=== PATIENT | female | born 1950 | race Caucasian/White ===

== ENCOUNTER 2018-01-31 19:43 | Emergency (ER) | payer MEDICARE, BC ==
[2018-01-31] MEDS ORDERED: Acetaminophen/Codeine 30-300mg Tablet ONE (20:11)
--- NOTE | 2018-01-31 20:28 | RAD ---
RIGHT KNEE FOUR VIEWS: 01/31/2018 HISTORY: Injury. COMPARISON: None. FINDINGS: There is no displaced fracture or evidence of dislocation seen. No knee joint effusion. IMPRESSION: No acute findings. POS: [facility]
== END 2018-01-31 20:40 | disposition home or self-care (01) ==
LOC: MADERS 19:43
DX: S86.911A Strain of unspecified muscle(s) and tendon(s) at lower leg level, right leg, initial encounter (principal); J44.9 Chronic obstructive pulmonary disease, unspecified; W22.8XXA Striking against or struck by other objects, initial encounter

== ENCOUNTER 2018-10-14 12:48 | Emergency (ER) | payer MEDICARE, BC ==
--- NOTE | 2018-10-14 14:37 | CT ---
CT OF THE BRAIN WITHOUT CONTRAST: Date: 10/14/18 HISTORY: Right-sided head pain. COMPARISON: None. FINDINGS: There is mucosal thickening within ethmoid air cells. Mastoid air cells are clear. No acute infarct, hemorrhage, or hydrocephalus present. Septum pellucidum and third ventricle are midline. IMPRESSION: No acute intracranial abnormality. POS: [facility]
== END 2018-10-14 15:05 | disposition home or self-care (01) ==
LOC: MADERS 12:48
DX: G44.209 Tension-type headache, unspecified, not intractable (principal); J44.9 Chronic obstructive pulmonary disease, unspecified
CPT/HCPCS: 70450

== ENCOUNTER 2023-03-15 16:46 | Emergency (ER) | payer MEDICARE, BC ==
[2023-03-15] MEDS ORDERED: Ibuprofen 200 MG TAB ONE ×2 (17:13→17:39)
[2023-03-15] MEDS ORDERED: Bacitracin 1 PK ONE (17:39)
[2023-03-15] MEDS ORDERED: traMADol HCl 50 MG TAB ONE (17:39)
[2023-03-15] MEDS ORDERED: Boostrix 0.5 ML (Tdap) VIAL (>/=7 yrs of age) ONE (17:39)
[2023-03-15] MEDS ORDERED: Morphine 4 MG/ML VIAL ONE (17:58)
== END 2023-03-15 18:30 | disposition home or self-care (01) ==
LOC: MADERS 16:46
DX: S42.252A Displaced fracture of greater tuberosity of left humerus, initial encounter for closed fracture (principal); S83.412A Sprain of medial collateral ligament of left knee, initial encounter; W18.39XA Other fall on same level, initial encounter
CPT/HCPCS: 90715; 96372; J2270